=== PATIENT | female | born 1995 | race African-American/Black ===

== ENCOUNTER 2016-10-16 12:59 | Emergency (ER) | payer SELFPAY ==
[2016-10-16] MEDS ORDERED: IPRATROPIUM/ALBUTEROL 0.5-2.5 MG/3 ML AMPUL NEB ONE (13:12)
[2016-10-16 13:14] VITALS: BP 132/83
[2016-10-16] MEDS ORDERED: PREDNISONE 20 MG TABLET PO ONE (13:14)
--- NOTE | 2016-10-16 13:15 | ER Document Report ---
ED Medical Screen (RME) - General Chief Complaint: Breathing Difficulty Stated Complaint: SHORTNESS OF BREATH Mode of Arrival: Ambulatory Information source: Patient Notes: pt presents to the ED for wheeze for 2 days, denies f/n//vd. Reports has used her inhaler without relief of sx.. + wheeze. - HPI Onset: Other - 2 days - Related Data Allergies/Adverse Reactions: red dye [Red Dye] Adverse Reaction (Verified 10/16/16 13:14) Past Medical History - General Information source: Patient Last Menstrual Period: 10/25/16- lesbian- reports not - Immunizations Hx Diphtheria, Pertussis, Tetanus Vaccination: Yes
--- NOTE | 2016-10-16 13:46 | ER Document Report ---
HPI - HPI Patient complains to provider of: WHEEZE Onset: Other - A FEW DAYS Quality of pain: No pain Context: Pt presents to the ED for c/o wheeze for the past few days. Reports hx of asthma. Has used her inhaler for the past few days without relief of sx. Reports recently moved from [place] to here and has not became established with a provider. Denies f/n/v/d. Speaking in a clear voice, No SOB. Associated Symptoms: None Exacerbated by: Denies Relieved by: Denies Similar symptoms previously: Yes - REPRODUCTIVE Reproductive: DENIES: : - DERM Skin Color: Normal Past Medical History - General Information source: Patient Last Menstrual Period: 10/25/16- lesbian- reports not - Social History Smoking Status: Never Smoker Chew tobacco use (# tins/day): No Frequency of alcohol use: None Drug Abuse: None Occupation: student Lives with: Family Family History: Other - sleep apnea, brother-asthma Patient has suicidal ideation: No Patient has homicidal ideation: No Pulmonary Medical History: Reports: Hx Asthma Renal/ Medical History: Denies: Hx Peritoneal Dialysis Surgical Hx: Negative - Immunizations Hx Diphtheria, Pertussis, Tetanus Vaccination: Yes Vertical Provider Document - CONSTITUTIONAL Agree With Documented VS: Yes Exam Limitations: No Limitations General Appearance: WD/WN, No Apparent Distress - HAPPY TALKATIVE, No SOB. - INFECTION CONTROL TRAVEL OUTSIDE OF THE [place] IN LAST 30 DAYS: No - HEENT HEENT: Atraumatic, Normocephalic. negative: Pharyngeal Erythema - NECK Neck: Normal Inspection, Supple. negative: Lymphadenopathy-Left, Lymphadenopathy-Right - RESPIRATORY Respiratory: No Respiratory Distress, Wheezing O2 Sat by Pulse Oximetry: 97 - CARDIOVASCULAR Cardiovascular: Regular Rate - GI/ABDOMEN Gastrointestinal: Abdomen Soft - BACK Back: Normal Inspection - MUSCULOSKELETAL/EXTREMETIES Musculoskeletal/Extremeties: MAEW, FROM - NEURO Level of Consciousness: Awake, Alert Motor/Sensory: No Motor Deficit - DERM Integumentary: Warm, Dry Course - Re-evaluation Re-evalutation: 10/16/16 13:48 Reports duoneb made her feel much better. No cough noted. pt has taken steroids before without problems. pt instructed to return for trouble breathing, RR even/unlabored, clear voice, no SOB. - Vital Signs Vital signs: Temp Pulse Resp BP Pulse Ox 98.2 F 95 20 132/83 H 97 10/16/16 13:12 10/16/16 13:12 10/16/16 13:12 10/16/16 13:12 10/16/16 13:12 Discharge - Discharge Clinical Impression: Wheeze, History of asthma, Elevated blood pressure reading Condition: Stable Disposition: HOME, SELF-CARE Instructions: Asthma ([facility]), Bronchodilators ([facility]), Family Physicians / Practices Additional Instructions: *You have been evaluated for wheeze, history of asthma *Use your inhaler as prescribed *Increase fluid *Monitor your temperature, take Tylenol as indicated *Follow up with a primary care provider within one week *Return to ED for increasing fever, cough, worsening condition, changes, needs, trouble breathing Prescriptions: Prednisone [Deltasone 10 mg Tablet] 10 mg PO ASDIR PRN #15 tablet PRN Reason: Forms: Elevated Blood Pressure, Return to School
== END 2016-10-16 13:50 | disposition home or self-care (01) ==
LOC: ER 12:59
DX: R06.2 Wheezing (principal); R03.0 Elevated blood-pressure reading, without diagnosis of hypertension
CPT/HCPCS: 94640; 99284; J7512; J7620

== ENCOUNTER 2016-10-18 11:42 | Emergency (ER) | payer SELFPAY ==
[2016-10-18 12:09] VITALS: BP 118/76
--- NOTE | 2016-10-18 12:13 | ER Document Report ---
ED Medical Screen (RME) - General Chief Complaint: Cough Stated Complaint: COUGH Notes: saturday- SOB, cough, wheezing sent home on prednisone taper and inhaler still SOB, wheezing h/o asthma I have greeted and performed a rapid initial assessment of this patient. A comprehensive ED assessment and evaluation of the patient, analysis of test results and completion of the medical decision making process will be conducted by additional ED providers. TRAVEL OUTSIDE OF THE [place] IN LAST 30 DAYS: No - Related Data Allergies/Adverse Reactions: red dye [Red Dye] Adverse Reaction (Verified 10/18/16 12:12) Past Medical History Pulmonary Medical History: Reports: Hx Asthma Renal/ Medical History: Denies: Hx Peritoneal Dialysis - Immunizations Hx Diphtheria, Pertussis, Tetanus Vaccination: Yes Physical Exam - Vital signs Vitals: Temp Pulse Resp BP Pulse Ox 97.9 F 78 20 118/76 96 10/18/16 12:08 10/18/16 12:08 10/18/16 12:08 10/18/16 12:08 10/18/16 12:08 Course - Vital Signs Vital signs: Temp Pulse Resp BP Pulse Ox 97.9 F 78 20 118/76 96 10/18/16 12:08 10/18/16 12:08 10/18/16 12:08 10/18/16 12:08 10/18/16 12:08
[2016-10-18] MEDS: IPRATROPIUM BROMIDE 0.02% NEB 0.5 MG/2.5 ML AMPUL NEB PRN ×2 (12:20→13:06)
--- NOTE | 2016-10-18 12:27 | ER Document Report ---
HPI - HPI Pain Level: 3 - REPRODUCTIVE Reproductive: DENIES: : - DERM Skin Color: Normal Past Medical History - Social History Smoking Status: Never Smoker Chew tobacco use (# tins/day): No Frequency of alcohol use: None Drug Abuse: None Family History: Other - sleep apnea, brother-asthma Patient has suicidal ideation: No Patient has homicidal ideation: No Pulmonary Medical History: Reports: Hx Asthma Renal/ Medical History: Denies: Hx Peritoneal Dialysis - Immunizations Hx Diphtheria, Pertussis, Tetanus Vaccination: Yes Vertical Provider Document - INFECTION CONTROL TRAVEL OUTSIDE OF THE [place] IN LAST 30 DAYS: No - RESPIRATORY O2 Sat by Pulse Oximetry: 96 Course - Vital Signs Vital signs: Temp Pulse Resp BP Pulse Ox 97.9 F 78 20 118/76 96 10/18/16 12:08 10/18/16 12:08 10/18/16 12:08 10/18/16 12:08 10/18/16 12:08
[2016-10-18] MEDS ORDERED: IPRATROPIUM/ALBUTEROL 0.5-2.5 MG/3 ML AMPUL NEB ONE ×3 (12:42→13:27)
[2016-10-18] MEDS ORDERED: ALBUTEROL SULFATE HFA (90 MCG/PUFF) 8 GM MDI (1 MDI/ER DISP) IH PRN (13:28)
[2016-10-18] MEDS ORDERED: DEXAMETHASONE SOD PHOS INJ 10 MG/1 ML VIAL IM ONE (13:48)
--- NOTE | 2016-10-18 14:06 | ER Document Report ---
ED General - General Chief Complaint: Breathing Difficulty Stated Complaint: COUGH Mode of Arrival: Ambulatory Information source: Patient Notes: 21-year-old female presents with complaints of a history of asthma with asthma exacerbation. Patient denies any fevers or chills nausea vomiting or diarrhea. Patient denies productive cough. Patient notes symptoms were improving with steroids but she ran out of her inhaler and is now having wheezing TRAVEL OUTSIDE OF THE [place] IN LAST 30 DAYS: No - HPI Onset: Last week Onset/Duration: Persistent Quality of pain: Achy Severity: Mild Pain Level: 1 Associated symptoms: Nonproductive cough, Shortness of breath Exacerbated by: Denies Relieved by: Denies Similar symptoms previously: Yes Recently seen / treated by doctor: Yes - Related Data Allergies/Adverse Reactions: red dye [Red Dye] Adverse Reaction (Verified 10/18/16 12:12) Past Medical History - Social History Smoking Status: Never Smoker Cigarette use (# per day): No Chew tobacco use (# tins/day): No Smoking Education Provided: No Frequency of alcohol use: None Drug Abuse: None Family History: Other - sleep apnea, brother-asthma Patient has suicidal ideation: No Patient has homicidal ideation: No Pulmonary Medical History: Reports: Hx Asthma Renal/ Medical History: Denies: Hx Peritoneal Dialysis - Immunizations Hx Diphtheria, Pertussis, Tetanus Vaccination: Yes Review of Systems - Review of Systems Notes: REVIEW OF SYSTEMS: CONSTITUTIONAL : Denies fever, chills, or sweats. Denies recent illness. EENT: Denies eye, ear, throat, or mouth pain or symptoms. Denies nasal or sinus congestion or discharge. Denies throat, tongue, or mouth swelling or difficulty swallowing. CARDIOVASCULAR: Denies chest pain. Denies palpitations or racing or irregular heart beat. Denies ankle edema. RESPIRATORY: Admits to wheezing shortness of breath GASTROINTESTINAL: Denies abdominal pain or distention. Denies nausea, vomiting , or diarrhea. Denies blood in vomitus, stools, or per rectum. Denies black, tarry stools. Denies constipation. GENITOURINARY: Denies difficulty urinating, painful urination, burning, frequency, blood in urine, or discharge. FEMALE GENITOURINARY: Denies vaginal bleeding, heavy or abnormal periods, irregular periods. Denies vaginal discharge or odor. MUSCULOSKELETAL: Denies back or neck pain or stiffness. Denies joint pain or swelling. SKIN: Denies rash, lesions or sores. HEMATOLOGIC : Denies easy bruising or bleeding. LYMPHATIC: Denies swollen, enlarged glands. NEUROLOGICAL: Denies confusion or altered mental status. Denies passing out or loss of consciousness. Denies dizziness or lightheadedness. Denies headache. Denies weakness or paralysis or loss of use of either side. Denies problems with gait or speech. Denies sensory loss, numbness, or tingling. Denies seizures. PSYCHIATRIC: Denies anxiety or stress. Denies depression, suicidal ideation, or homicidal ideation. ALL OTHER SYSTEMS REVIEWED AND NEGATIVE. Dictation was performed using [email or web address] voice recognition software PHYSICAL EXAMINATION: GENERAL: Well-appearing, well-nourished and in no acute distress. HEAD: Atraumatic, normocephalic. EYES: Pupils equal round and reactive to light, extraocular movements intact, conjunctiva are normal. ENT: Nares patent, oropharynx clear without exudates. Moist mucous membranes. NECK: Normal range of motion, supple without lymphadenopathy LUNGS: Inspiratory and expiratory wheezing all throughout no respiratory distress Female : deferred Musculoskeletal: Normal range of motion, no pitting or edema. No cyanosis. NEUROLOGICAL: Cranial nerves grossly intact. Normal speech, normal gait. Normal sensory, motor exams PSYCH: Normal mood, normal affect. SKIN: Warm, Dry, normal turgor, no rashes or lesions noted. Physical Exam - Vital signs Vitals: Temp Pulse Resp BP Pulse Ox 97.9 F 78 20 118/76 96 10/18/16 12:08 10/18/16 12:08 10/18/16 12:08 10/18/16 12:08 10/18/16 12:08 Course - Re-evaluation Re-evalutation: 10/18/16 14:07 Patient was given 3 duo nebs notes significant improvement in her breathing. Patient is in no distress and will be discharged home with albuterol inhaler After performing a Medical Screening Examination, I estimate there is LOW risk for ACUTE CORONARY SYNDROME, RESPIRATORY FAILURE, SEPSIS OR MENINGITIS, thus I consider the discharge disposition reasonable. The patient and I have discussed the diagnosis and risks, and we agree with discharging home with close follow- up. We also discussed returning to the Emergency Department immediately if new or worsening symptoms occur. We have discussed the symptoms which are most concerning (e.g., changing or worsening pain, trouble swallowing or breathing, neck stiffness, fever) that necessitate immediate return. - Vital Signs Vital signs: Temp Pulse Resp BP Pulse Ox 97.9 F 78 20 118/76 96 10/18/16 12:08 10/18/16 12:08 10/18/16 12:08 10/18/16 12:08 10/18/16 12:27 - Diagnostic Test Radiology reviewed: Image reviewed, Reports reviewed Discharge - Discharge Clinical Impression: Asthma exacerbation, Wheeze Condition: Stable Disposition: HOME, SELF-CARE Additional Instructions: Asthma You have been diagnosed as having asthma. This is a condition where there is episodic tightness in the bronchial tubes. Allergies, infections, and polluted or cold air may be contributing factors. Emergency treatment of a severe asthma attack may include adrenaline shots , or bronchodilator aerosol. You may feel lightheaded, have a decreased exercise tolerance and a rapid pulse for an hour or two. Rest and get plenty of fluids. Home treatment of asthma requires bronchodilator drugs. These can be administered by injection, inhalation, or by mouth. Antibiotics and corticosteroids may be required for some patients. You should avoid chemical fumes, dusts, pollens, and exercising in very cold or dry air. If you smoke, stop!! If you develop a fever, increased wheezing, chest pain, or severe shortness of breath, you should contact the doctor immediately Follow up with your physician tomorrow for further care or return to the ED IMMEDIATELY if symptoms worsen or new concerns occur
== END 2016-10-18 14:24 | disposition home or self-care (01) ==
LOC: ER 11:42
DX: J45.901 Unspecified asthma with (acute) exacerbation (principal); R06.02 Shortness of breath; R05 Cough
CPT/HCPCS: 94640 ×2; 99284; 96372; 71020; J1100; J3490 ×2; J7620